=== PATIENT | male | born 1960 | race Caucasian/White ===

== ENCOUNTER 2017-09-15 10:31 | Day surgery (SDC) | payer MEDICAID ==
[2017-09-15 10:53] VITALS: BMI 25.3
[2017-09-15 11:05] VITALS: TEMP 98.2
--- NOTE | 2017-09-15 12:50 | CP.SDSHP ---
Same Day Surgery H & P - History Proposed Procedure: colonoscopy - Previous Medical/Surgical History Cardiac: ASHD/CAD - Allergies Allergies: Allergies No Known Allergies Allergy (Unverified 10/16/16 22:02) - Physical Exam Vital Signs: Vital Signs 09/15/17 10:53 Temperature 98.2 F Pulse Rate 69 Respiratory 18 Rate Blood Pressure 141/82 O2 Sat by Pulse 100 Oximetry - Date & Time Date: 09/15/17 Time: 12:49 Short Stay Discharge - Short Stay Discharge Admitting Diagnosis/Reason for Visit: ENCOUNTER FOR SCREENING FOR MALIGNANT NEOPLASM OF Disposition: HOME/ ROUTINE
[2017-09-15] MEDS ORDERED: Lactated Ringer's 500 ML IV SCH (13:15)
[2017-09-15] MEDS ORDERED: Lidocaine Hydrochloride 5 ML INJ ONE (13:18)
[2017-09-15] MEDS ORDERED: Propofol 10 mg/ml Inj (20 ML) ONE (13:18)
[2017-09-15] MEDS ORDERED: Lactated Ringer's 1,000 ML IV ONE (13:21)
[2017-09-15] MEDS ORDERED: Lidocaine 2% Jelly (5 ml) TOP ONE (13:24)
[2017-09-15 14:34] VITALS: RESP 20; O2SAT 100
[2017-09-15 14:39] VITALS: BP 130/70; PULSE 68
== END 2017-09-15 14:55 | disposition home or self-care (01) ==
LOC: C.ENDO 10:31
PROVIDERS: ATTEND Colon & Rectal Surgery
DX: Z12.11 Encounter for screening for malignant neoplasm of colon (principal); D12.5 Benign neoplasm of sigmoid colon; D12.8 Benign neoplasm of rectum; K64.8 Other hemorrhoids; K64.4 Residual hemorrhoidal skin tags; I25.10 Atherosclerotic heart disease of native coronary artery without angina pectoris
CPT/HCPCS: 45380; 45385; 88305; J2704; J7120